=== PATIENT | male | born 1970 | race Hispanic/Latino ===

== ENCOUNTER → 2018-09-27 | Outpatient (CLI) | payer OTHER ==
[~2018-09-27] MED LIST: AMOX-426 PO; TRAM-355 PO
== END | disposition home or self-care (01) ==
LOC: OIH 13:57
PROVIDERS: ATTEND Internal Medicine Critical Care Medicine
DX: Z13.6 Encounter for screening for cardiovascular disorders (principal)
CPT/HCPCS: 75571

== ENCOUNTER → 2025-07-25 | Outpatient (CLI) | payer BC ==
[~2025-07-25] MED LIST changes: -TRAM-355 PO; +TRAM-543 PO
--- NOTE | 2025-07-25 12:09 | HMCIMG ---
US THYROID/NECK HISTORY: Nontoxic single thyroid nodule TECHNIQUE: Real-time thyroid ultrasound was performed. FINDINGS: Right thyroid lobe measures 3.5 x 1.4 x 0.8 cm.. The right thyroid lobe has a small cyst in the midpole measuring 0.7 x 0.5 x 0.5 cm the thyroid gland has homogeneous echotexture. Left thyroid lobe measures 3.0 x 1.2 x 1.1 cm.. No discrete thyroid nodule is seen. The isthmus measures 0.3 cm. IMPRESSION: No nodule seen in either thyroid lobe. There is a cyst seen in the right thyroid lobe . TI-RADS code is 1 which is normal.
== END | disposition home or self-care (01) ==
LOC: RAH 10:30
PROVIDERS: ATTEND Physician Assistant Medical
DX: E04.1 Nontoxic single thyroid nodule (principal)
CPT/HCPCS: 76536